=== PATIENT | male | born 1985 | race Caucasian/White ===

== ENCOUNTER 2016-10-27 23:29 | Emergency (ER) | payer MEDICAID ==
--- NOTE | 2016-10-27 23:48 | EDPHY ---
H & P Stated Complaint: HEARING VOICES, "NEED TO GET RIGHT ON MY MEDS, I NEED TO BE BACK ON THEM" Source: Patient - Personal History Current Tetanus/Diphtheria Vaccine: No - Medical/Surgical History Hx Asthma: No Hx Chronic Respiratory Disease: No Hx Diabetes: No Hx Cardiac Disease: No Hx Renal Disease: No Hx Cirrhosis: No Hx Alcoholism: No Hx HIV/AIDS: No Hx Splenectomy or Spleen Trauma: No Other PMH: PSYCH HOSPITALIZATIONS, PARANOID SCHIZOPHRENIA, FROSTBITE TO FEET - Social History Smoking Status: Current some day smoker HPI/ROS: HPI CHIEF COMPLAINT: Paranoid schizophrenic off meds HISTORY OF PRESENT ILLNESS: This patient 31-year-old male, presents emergency room by walk-in, states that he is off of his psychiatric medications. He tells me he has a history of paranoid schizophrenia used to be on Zyprexa but is not taking his Zyprexa in weeks. He states he feels paranoid. Upon evaluation here in the emergency room he appears gravely disabled. Very unkept. Disheveled. Patient not be taking care of himself. Past Medical History: Paranoid schizophrenia Past Surgical History: Denies Social History: Denies daily use drugs alcohol tobacco products, homeless Family History: Noncontributory ROS REVIEW OF SYSTEMS: A comprehensive 10 point review of systems is otherwise negative aside from elements mentioned in the history of present illness. Exam Constitutional appears unkept, gravely disabled, disheveled, triage nursing summary reviewed, vital signs reviewed, awake/alert. Eyes normal conjunctivae and sclera, EOMI, PERRLA. HENT normal inspection, atraumatic, moist mucus membranes, no epistaxis, neck supple/ no meningismus, no raccoon eyes. Respiratory clear to auscultation bilaterally, normal breath sounds, no respiratory distress, no wheezing. Cardiovascular rate normal, regular rhythm, no murmur, no edema, distal pulses normal. Gastrointestinal soft, non-tender, no rebound, no guarding, normal bowel sounds, no distension, no pulsatile mass. Genitourinary no CVA tenderness. Musculoskeletal no midline vertebral tenderness, full range of motion, no calf swelling, no tenderness of extremities, no meningismus, good pulses, neurovascularly intact. Skin pink, warm, & dry, no rash, skin atraumatic. Neurologic awake, alert and oriented x 3, AAOx3, moves all 4 extremities equally, motor intact, sensory intact, CN II-XII intact, normal cerebellar, normal vision, normal speech. Psychiatric flat affect Heme/Lymph/Immune no lymphadenopathy. Differential Diagnosis: Includes but is not limited to in a particular order great disability, paranoid schizophrenia, acute psychosis, paranoia, medication noncompliance Medical Decision Making: Plan for this patient this patient be placed on M1 hold by myself due to being gravely disabled, I will give him 1st dose of Zyprexa here. He will need mental health evaluation after medical clearance with blood draw. Re-evaluation: 1247AM: Labs reviewed. Positive for methamphetamine. Medically cleared. Needs mental health evaluation. 0700: No acute events overnight. Patient is waiting mental health placement. ( Kota Waite) Constitutional: Initial Vital Signs Temperature (C) 36.4 C 10/27/16 23:35 Heart Rate 110 H 10/27/16 23:35 Respiratory Rate 18 10/27/16 23:35 Blood Pressure 118/78 10/27/16 23:35 O2 Sat (%) 97 10/27/16 23:35 O2 Delivery Mode Room Air Allergies/Adverse Reactions: No Known Allergies Allergy (Unverified 10/27/16 23:35) Medical Decision Making ED Course/Re-evaluation: Patient has remained stable during my shift. At 11:00 p.m. patient is given 5 mg of Zyprexa which he had last night seemed to help him. (Giovany Sol) Other Provider: I assumed care of this patient from Dr. Waite at 7:00 a.m.. We are awaiting psychiatric evaluation, which is scheduled for noon today. 3 PM: Patient has been cooperative while under my care. Lungs CTA. Heart RRR. Evaluation was performed and placement in Crisis [facility]abilization Unit being sought. Care transferred to Dr. Sol at 3 PM. September 28, 7:00 a.m.. I assumed care from Dr. Waite again. I am familiar with this patient, as I cared for him yesterday. He was cooperative during my shift today. Appropriate placement was located. EMTALA form has been signed. Transfer arranged. (Judy Carney) Care Turn Over: Dr. Patel at 2300 (Giovany Sol) - Data Points Laboratory Results: Laboratory Results 10/27/16 23:55 10/27/16 23:55 Medications Given: Discontinued Medications Olanzapine (Olanzapine) 5 mg PO ONCE ONE Stop: 10/27/16 23:52 Last Admin: 10/27/16 23:57 Dose: 5 mg Olanzapine (Zyprexa Zydis) 5 mg PO EDNOW ONE Stop: 10/28/16 22:27 Last Admin: 10/28/16 22:34 Dose: 5 mg Departure - Departure Disposition: Other Psych, Not [place] Clinical Impression: Methamphetamine abuse Schizophrenia Qualifiers: Schizophrenia type: paranoid schizophrenia Qualified Code(s): F20.0 - Paranoid schizophrenia Condition: Fair Referrals: NONE *PRIMARY CARE P,. [Primary Care Provider] - As per Instructions
[2016-10-27] MEDS ORDERED: OLANZapine 5 MG TAB PO ONE (23:51)
[2016-10-28 00:12] LABS: % IMMATURE GRANULYOCYTES 0.3 % (0.0-1.1); ABSOLUTE IMMATURE GRANULOCYTES 0.03 10^3/uL (0.00-0.10); ADD DIFF? NO; ADD MORPH? NO; ADD SCAN? NO; ATYPICAL LYMPHOCYTE FLAG 0 (0-99); FRAGMENT RBC FLAG 0 (0-99); HEMATOCRIT 52.6 % (40.0-51.0); HEMOGLOBIN 18.6 g/dL (13.7-17.5); LEFT SHIFT FLG 0 (0-99); LIPEMIA HEMOLYSIS FLAG 90 (0-99); MEAN CELL HEMOGLOBIN 32.6 pg (27.9-34.1); MEAN CELL HEMOGLOBIN CONCENTR. 35.4 g/dL (32.4-36.7); MEAN CELL VOLUME 92.1 fL (81.5-99.8); MEAN PLATELET VOLUME 9.7 fL (8.7-11.7); PLATELET CLUMPS FLAG 0 (0-99); PLATELET COUNT 264 10^3/uL (150-400); RED BLOOD CELL COUNT 5.71 10^6/uL (4.40-6.38); RED CELL DISTRIBUTION WIDTH 13.4 % (11.5-15.2)
[2016-10-28 00:20] LABS: ANION GAP 16 mEq/L (8-16); CALCIUM 10.4 mg/dL (8.5-10.4); CARBON DIOXIDE 27 mEq/l (22-31); CHLORIDE 98 mEq/L (97-110); CREATININE 0.9 mg/dL (0.7-1.3); ETHANOL SERUM < 10 mg/dL (0-10); GLOMERULAR FILTRATION RATE > 60; GLUCOSE 91 mg/dL (70-100); POTASSIUM 3.7 mEq/L (3.5-5.2); SALICYLATE < 1.0 mg/dL (2.0-20.0); SODIUM 141 mEq/L (134-144)
[2016-10-28] MEDS ORDERED: OLANZapine DISINTEGR 5 MG TAB PO ONE (22:26)
[2016-10-29] VITALS: RESP 16
[2016-10-29 14:27] VITALS: BP 109/54; PULSE 84; TEMP 97.7; O2SAT 97
== END 2016-10-29 15:26 ==
DX: F20.0 Paranoid schizophrenia (principal); F15.10 Other stimulant abuse, uncomplicated; F17.200 Nicotine dependence, unspecified, uncomplicated
CPT/HCPCS: 80305; G0480